=== PATIENT | male | born 1975 ===

== ENCOUNTER 2022-11-15 22:05 | Emergency (ER) | payer OTHER, SELFPAY ==
[2022-11-15 22:09] VITALS: BP 150/102; PULSE 68; RESP 18; TEMP 36.3; O2SAT 96; BMI 23.0
--- NOTE | 2022-11-15 22:26 | CRLHL7_ITS ---
For Patients: As a result of the Century Cures Act, medical imaging exams and procedure reports are released immediately into your electronic medical record. You may view this report before your referring provider. If you have questions, please contact your health care provider. Indication: Testicular pain. Technique: Ultrasound of the scrotum and contents. Sonographic trimble-scale images were obtained with spectral and color Doppler waveform and spectral waveform analysis of the testicles. Comparison: None. Findings: Bother testicles are normal in size and echotexture. No masses. No suspicious calcifications. Arterial and venous color Doppler blood flow and spectral waveforms are present in both testicles. Epididymis: Unremarkable bilaterally. Normal blood flow. Other: No significant hydrocele. No sign of varicocele. Scrotal wall is normal. Impression: Unremarkable ultrasound of the scrotum and contents. No sign of torsion or inflammation. Dictated by Manohar Villarreal MD @ 11/16/2022 12:06:12 AM (Electronically Signed)
--- NOTE | 2022-11-15 22:27 | ED_ITS ---
HPI - Male Genitourinary General Chief complaint: Urogenital Problems, Male Stated complaint: testicular pain Time Seen by Provider: 11/15/22 22:09 History of Present Illness HPI Narrative: This 47-year-old male comes in reporting testicular pain for the last 4 or more days. He states that it seems more on the left than on the right. He does not report any injury event. He denies having any symptoms of dysuria. He has not had any fevers. He states that he had a vasectomy more than 10 years ago. He is in the process of moving currently and has been on long road trips related to this. Related Data Allergies Allergy/AdvReac Type Severity Reaction Status Date / Time Penicillins Allergy Verified 11/15/22 22:09 Review of Systems Status of ROS: Reports: 10 or more systems reviewed and unremarkable except as noted in History and below Narrative: Constitutional: No fevers, no weight gain or loss. Eyes: No discharge. No vision changes. HENT: No congestion, no sore throat, no ear pain. Cardiovascular: No chest pain, no palpitations. Respiratory: No shortness of breath, no wheezes, no cough. Gastrointestinal: No abdominal pain, no vomiting, no diarrhea. Genitourinary: No dysuria, no hematuria. Testicular pain as described above. Musculoskeletal: Normal range of motion. Skin: No rashes, no pruritis. Neurological: No dizziness, weakness, sensory change, speech change. Endo/Heme/Allergies: No bruising or bleeding. No polydipsia. Pysch: no suicidality, no anxiety, no insomnia. All other systems reviewed and are negative. PFSH PFSH Social History Smoking Status: Never smoker Do you use any of these nicotine containing products: None Second hand tobacco smoke exposure: No How often do you have a drink containing alcohol: never How often do you have six or more drinks on one occasion: Never AUDIT-C Alcohol total score: 0 Non-prescribed substance use: denies use service: No Exam Narrative: Exam Narrative: Constitutional: Well-developed, well-nourished, no acute distress. HEENT: Normocephalic, atraumatic. Neck: Normal range of motion. Nontender. Supple. Heart: Regular. No murmurs. Normal rate. Intact distal pulses. Lungs: Clear to auscultation. No chest discomfort. No wheezes, rhonchi, or rales. Abdomen: Normal bowel sounds. Nontender. No rebound tenderness. Genitalia: Normal appearing. No erythema. Diffuse tenderness in the testicles, left greater than right. Normal cremasteric reflexes. Back: No midline tenderness. Normal range of motion. Extremities: Normal range of motion. No injury. Skin: Intact. No rash. Warm. No erythema or pallor. Neurologic: No altered sensation. No weakness. Alert and oriented. Psychiatric: No suicidality. No anxiety or depression. No insomnia. Nursing notes and vitals signs are reviewed. Const: Vital Signs, click to edit/add: Vital Signs - 24 hr 11/15/22 22:09 Temperature 97.3 F L Pulse Rate [Pulse Oximeter] 68 Respiratory Rate 18 Blood Pressure [Le ft Upper Arm] 150/102 H Pulse Oximetry 96 Oxygen Delivery Me thod Room Air Course Vital Signs Vital signs: Initial Vital Signs Temperature 97.3 F L 11/15/22 22:09 Temperature Source Temporal Artery Scan 11/15/22 22:09 Pulse Rate 68 11/15/22 22:09 Pulse Rhythm Regular 11/15/22 22:09 Respiratory Rate 18 11/15/22 22:09 Blood Pressure 150/102 H 11/15/22 22:09 Blood Pressure Mean 118 H 11/15/22 22:09 Blood Pressure Position Supine 11/15/22 22:09 Pulse Oximetry 96 11/15/22 22:09 Oxygen Delivery Method Room Air 11/15/22 22:09 Vital Signs Temperature 97.3 F L 11/15/22 22:09 Pulse Rate 68 11/15/22 22:09 Respiratory Rate 18 11/15/22 22:09 Blood Pressure 150/102 H 11/15/22 22:09 Pulse Oximetry 96 11/15/22 22:09 Oxygen Delivery Method Room Air 11/15/22 22:09 Temperature 97.3 F L 11/15/22 22:09 Pulse Rate 68 11/15/22 22:09 Respiratory Rate 18 11/15/22 22:09 Blood Pressure 150/102 H 11/15/22 22:09 Pulse Oximetry 96 11/15/22 22:09 Oxygen Delivery Method Room Air 11/15/22 22:09 MDM - Male Genitourinary MDM Narrative Medical decision making narrative: This patient comes in reporting testicular pain, left greater than right, for the past several days. He states that there was an episode where a dog jumped on him and hit him in this area causing pain making him double over for the time being. He got better from this. He arrives with reassuring vital signs. He does not have any symptoms of dysuria. Urinalysis shows no sign of infraction or hematuria. An ultrasound of the scrotum is acquired and this also returns normal. These results are communicated with the patient. He is okay to return home. He did receive a prescription for Toradol from the [email or web address] machine. Lab Data Labs: Lab Results 11/15/22 Range/Units 22:35 Urine Color Yellow (Yellow) Urine Appearance Clear (Clear) Urine pH 6.0 (5.0-8.5) Ur Specific [place] 1.010 (1.000-1.030) Urine Protein Negative (Negative) Urine Glucose (UA) Negative (Negative) Urine Ketones Negative (Negative) Urine Blood Negative (Negative) Urine Nitrite Negative (Negative) Urine Bilirubin Negative (Negative) Urine Urobilinogen 0.2 (0.2-1.0) Ur Leukocyte Esterase Negative (Negative) Urine RBC 0-2 (0-2) Urine WBC 0-2 (0-5) Ur Squamous Epith Cells Few (None-Few) Urine Bacteria None (None) Discharge Plan Discharge Clinical Impression: Pain in both testicles Patient Disposition: Home, Self-Care Condition: Stable Additional Instructions: Activity as tolerated. Take medication as needed and directed. Follow up with MD or return if worsening symptoms occur. Follow Up/Referrals: Provider,Not a Local [Primary Care Provider] - Stand Alone Forms: [employer] Info Instructions
[2022-11-15 22:46] LABS: Appearance Urine Clear (Clear); Bilirubin Urine Negative (Negative); Blood Urine Negative (Negative); Color Urine Yellow (Yellow); Glucose Urine Negative (Negative); Ketones Urine Negative (Negative); Leukocyte Esterase Urine Negative (Negative); Nitrite Urine Negative (Negative); Protein Urine Negative (Negative); Urobilinogen Urine 0.2 (0.2-1.0)
[2022-11-15 22:54] LABS: RBC Urine 0-2 (0-2); Squamous Epithelial Cell Urine Few (None-Few); WBC Urine 0-2 (0-5)
[2022-11-16 00:08] VITALS: BP 126/86; PULSE 68; RESP 16; O2SAT 95
== END 2022-11-16 00:09 | disposition home or self-care (01) ==
PROVIDERS: Emergency Provider Emergency Medicine Emergency Medical Services
DX: N50.812 Left testicular pain (principal); N50.811 Right testicular pain
CPT/HCPCS: 76870; 81001; 93976; 99283; 99284

== ENCOUNTER 2023-01-23 08:45 | Outpatient (RCR) | payer OTHER, SELFPAY | END 2023-05-23 23:59 | disposition home or self-care (01) | PROVIDERS: Visit Provider Physician Assistant | DX: N50.812 Left testicular pain (principal); N50.811 Right testicular pain; Z51.89 Encounter for other specified aftercare | CPT/HCPCS: 97110; 97162 ==

== ENCOUNTER 2023-02-10 10:35 | Outpatient (CLI) | payer OTHER, SELFPAY | END 2023-02-10 10:36 | disposition home or self-care (01) | PROVIDERS: PCP Family Medicine; Visit Provider Family Medicine | DX: Z00.00 Encounter for general adult medical examination without abnormal findings (principal); R53.83 Other fatigue; M25.50 Pain in unspecified joint; Z13.6 Encounter for screening for cardiovascular disorders; Z12.5 Encounter for screening for malignant neoplasm of prostate | CPT/HCPCS: 80053; 80061; 84153; 84443; 86039; 86140; 86431 ==

== ENCOUNTER 2023-02-20 11:42 | Outpatient (CLI) | payer OTHER, SELFPAY ==
[2023-02-20 15:43] LABS: Chlamydia DNA Amplified* NOT DETECTED (No Detected); GC DNA Amplified* NOT DETECTED (No Detected)
== END 2023-02-20 11:43 | disposition home or self-care (01) ==
PROVIDERS: PCP Family Medicine; Visit Provider Family Medicine
DX: R35.0 Frequency of micturition (principal); N50.89 Other specified disorders of the male genital organs; Z72.51 High risk heterosexual behavior
CPT/HCPCS: 87070; 87086; 87252; 87491; 87591

== ENCOUNTER 2023-03-01 18:19 | Outpatient (CLI) | payer OTHER, SELFPAY ==
--- NOTE | 2023-03-01 18:15 | MR_ITS ---
[address] [address] Phone:?[phone] Fax:?[phone] Referring Physician Information: Laura Mauricio [address] [facility] [address] Phone:?[phone] Fax:?[phone] Patient:Rodolfo Escobar D.O.B:?1975 Sex:?Male Phone:?[phone] [facility] MRN:?[id number] Exam Date:?03/01/2023 EXAM: MRI of the RIGHT SHOULDER, without contrast CLINICAL: Right shoulder injury when walking a dog. Evaluate rotator cuff and labrum. COMPARISONS: X-rays dated 02/20/2023. TECHNICAL: Multiplanar multisequence MRI of the right shoulder was obtained. SEDATION: None. CONTRAST: None. FINDINGS: Rotator cuff: Supraspinatus/Infraspinatus: No tendinosis, tear or atrophy. Teres minor: No tendinosis, tear or atrophy. Subscapularis: There is mild tendinosis of the distal tendon without significant tendon tear. No significant fatty atrophy of the muscle belly. Bursae: Subacromial-subdeltoid: Mild bursal edema. Subcoracoid: No significant bursal fluid. Coracoacromial arch: Acromion morphology: Type II. No os acromiale. Acromiohumeral space: Within normal limits. Coracohumeral space: Within normal limits. Biceps tendon, long head: Intraarticular and extraarticular segments intact without rupture, tendinopathy or displacement. Glenohumeral joint: Physiologic volume of joint fluid. Articular cartilage: No significant chondral loss. Capsule: There is mild irregularity and increased signal involving the inferior glenohumeral ligament. No capsular disruption. Labrum: There is tearing of the superior labrum extending posterior to the biceps anchor as seen on coronal series 4 images 14-18. Tearing extends into the posterior labrum as seen on axial series 3.2 images 45-48. There is focal tearing of the inferior labrum on coronal series 4 image 15. Bones: No suspicious marrow signal alteration, fracture or dislocation. Acromioclavicular joint: No acute injury, arthropathy, or inferior hypertrophy. IMPRESSION: 1. Tearing of the superior labrum extending into the posterior labrum with focal tearing also seen to involve the inferior labrum. 2. Mild tendinosis of the distal subscapularis tendon. No rotator cuff tendon tear. 3. Mild edema within the subacromial-subdeltoid bursa. 4. Mild changes of the inferior glenohumeral ligament which may reflect sequelae of mild sprain injury also can be seen in patients with adhesive capsulitis. 5. No glenohumeral chondral defects or fracture. JCZ Electronically signed on 03/02/2023 7:38:00 AM by Chapin Pantoja D.O.
== END 2023-03-01 18:20 | disposition home or self-care (01) ==
PROVIDERS: PCP Family Medicine; Visit Provider Physician Assistant
DX: M25.511 Pain in right shoulder (principal); S43.431A Superior glenoid labrum lesion of right shoulder, initial encounter; M75.51 Bursitis of right shoulder; M75.01 Adhesive capsulitis of right shoulder
CPT/HCPCS: 73221

== ENCOUNTER 2023-03-03 08:05 | Outpatient (CLI) | payer OTHER, SELFPAY ==
--- NOTE | 2023-03-03 09:18 | W.ANESCHARGE ---
Anesthesia Charges Start Date/Time Anesthesia Start Date: 03/03/23 Anesthesia Start Time: 08:45 Stop Date/Time Anesthesia Stop Date: 03/03/23 Anesthesia Stop Time: 09:13
--- NOTE | 2023-03-03 11:46 | W.ANESCHARGE ---
Anesthesia Charges Start Date/Time Anesthesia Start Date: 03/03/23 Anesthesia Start Time: 08:45 Stop Date/Time Anesthesia Stop Date: 03/03/23 Anesthesia Stop Time: 09:13
== END 2023-03-03 08:06 | disposition home or self-care (01) ==
LOC: OP CLINIC 08:06
PROVIDERS: PCP Family Medicine; Visit Provider Internal Medicine
DX: Z12.11 Encounter for screening for malignant neoplasm of colon (principal); K63.5 Polyp of colon
CPT/HCPCS: 00811; 45385; 88305; J2704

== ENCOUNTER 2023-08-11 14:30 | Outpatient (RCR) | payer OTHER, SELFPAY | END 2023-08-29 14:33 | disposition home or self-care (01) | PROVIDERS: PCP Internal Medicine; Visit Provider Orthopaedic Surgery Sports Medicine | DX: M75.00 Adhesive capsulitis of unspecified shoulder (principal); M25.511 Pain in right shoulder; M25.611 Stiffness of right shoulder, not elsewhere classified; Z51.89 Encounter for other specified aftercare | CPT/HCPCS: 97110; 97140; 97161 ==

== ENCOUNTER 2024-02-22 08:15 | Outpatient (RCR) | payer OTHER, SELFPAY ==
--- NOTE | 2024-02-22 09:44 | PT.OPEX ---
PT [place] Outpatient Eval PT [facility] Outpatient Eval Start: 02/22/24 07:24 Freq: Status: Active Protocol: Document 02/22/24 07:24 CRP (Rec: 02/22/24 09:44 CRP [id number]) E-signed By Buddy Arriaga PT Physical Therapy Outpatient Evaluation Insurance Information Insurance Name Other; See Comments Insurance Information/Comments [employer] Medical Diagnosis Enthesopathy of Right foot and ankle Referring MD Dr Gonzalez Subjective Subjective Pt notes that he began working on heel raises to help prepare for a hike. The next day he started having some pain at 3rd toe. This was a year ago. Had multiple injections and anti- inflammatories. Had MRI that showed maybe some joint injury . The 3rd toe got better by about November but then the 4th toe began hurting. Pain is about 2/10. When waking in the morning his pain is 1/10 but then by the end of the day it's a 3/10. Was fit for orthotics but does not have the inserts yet. Being in the boot does seem to help. 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 Pain Comments 2/10 Current Work Status Ndt Inspector Objective Other/Pertinent Objective Ankle ROM: end range DF restriction. All other motions WNL. Toe ROM: mild flexion restriction actively. Mild extension restriction. Palpation: No noted swelling or warmth. No pain on dorsum of the 4th jt. No pain on plantar surface of the 4th MTP MMT: Ankle WNL in all planes. 4/5 foot intrinsics. Gait: currently ambulating with a boot SLR testing - shows some adverse neurodynamics on R without pain reproduction Prone lumbar spine segmental testing - WNL Assessment Assessment/Impression Pt presents to the clinic with joint related 4th MTP pain and mobility dysfunction. With this the pt shows capsular tightness of the 4th MTP and restricted ankle DF. At this time the pts pain levels are very low and seem to be going in the right direction. PT did instruct the pt on stretching exer to improve ankle DF and improve capsular mobility of the 4th MTP. Skilled PT recommended to facilitate pt return from 4th MTP strain and load tolerance related issues. Primary Functional Limitations Walking Standing Rec activity Plan of Care Rehabilitation Potential Excellent Physical Therapy Goals 1. Pt will be independent with HEP in 8 weeks. 2. Pt will walk greater than 30 min to allow for aerobic exercise without pain in 10 weeks. 3. Pt will return to all recreational activity with family and friends without pain in 12 weeks. Coordination/Communication With Referral Source Treatment Plan/Direct Interventions Gait Training,Joint Mobilization,Manual Therapy, Neuromuscular Re-ed,Self-Care/ Home Management,Therapeutic Activities,Therapeutic Exercises,Ultrasound Frequency/Duration 1x/wk to PRN for 12 weeks Patient Will Be Discharged From Therapy Completion of LTG(s),Skills Plateau,Independent w/HEP, Independently Progressing Evaluation Billing Untimed Code Treatment Minutes 42 Complexity Moderate Certification Information Provider Signature Required Communication Only-No Signature Required
== END 2024-06-06 14:09 | disposition home or self-care (01) ==
PROVIDERS: PCP Internal Medicine; Visit Provider Podiatrist
DX: M77.51 Other enthesopathy of right foot and ankle (principal); Z51.89 Encounter for other specified aftercare
CPT/HCPCS: 97110; 97162

== ENCOUNTER 2024-05-08 15:38 | Outpatient (CLI) | payer OTHER, SELFPAY | END 2024-05-08 15:39 | disposition home or self-care (01) | LOC: NFLDREF 15:42 | PROVIDERS: PCP Internal Medicine; Visit Provider Internal Medicine | DX: M79.673 Pain in unspecified foot (principal) | CPT/HCPCS: 84550 ==

== ENCOUNTER 2024-09-19 09:14 | Outpatient (CLI) | payer OTHER, SELFPAY | END 2024-09-19 09:15 | disposition home or self-care (01) | LOC: NFLDREF 09:17 | PROVIDERS: PCP Internal Medicine; Visit Provider Internal Medicine | DX: R20.0 Anesthesia of skin (principal) | CPT/HCPCS: 80048 ==

== ENCOUNTER 2025-02-20 10:08 | Outpatient (CLI) | payer OTHER, SELFPAY | END 2025-02-20 10:09 | disposition home or self-care (01) | LOC: NFLDREF 02-26 02:10 | PROVIDERS: PCP Internal Medicine; Referring Provider Internal Medicine; Visit Provider Internal Medicine | DX: I10 Essential (primary) hypertension (principal); Z13.9 Encounter for screening, unspecified | CPT/HCPCS: 80053; 80061 ==